=== PATIENT | female | born 1980 | race Caucasian/White ===

== ENCOUNTER 2018-09-25 19:20 | Emergency (ER) | payer SELFPAY ==
[2018-09-25 20:18] LABS: #Basophils 0.1 thou/uL (0.0-0.2); #Eosinphils 0.4 thou/uL (0.0-0.7); #Lymphocytes 4.1 thou/uL (1.20-3.40); #Monocytes 0.9 thou/uL (0.11-0.59); #Neutrophils 10.1 thou/uL (1.40-6.50); %Basophils 0.6 % (0.0-1.0); %Eosinophils 2.4 % (0.0-10.0); %Lymphocytes 26.3 % (21.0-51.0); %Monocytes 5.6 % (0.0-10.0); %Neutrophils 65.1 % (42.0-75.0); Hemoglobin 10.4 g/dL (12.0-16.0); Mean Corpuscular HGB CONC 33.2 g/dL (32.0-36.0); Mean Corpuscular Hemoglobin 30.5 pg (27.0-31.0); Mean Corpuscular Volume 91.9 fL (78.0-98.0); Mean Platelet Volume 7.6 fL (7.4-10.4); Platelet Count 407 thou/uL (130-400); RBC Distribution Width 12.6 % (11.5-14.5); Red Blood Cell (RBC) Count 3.42 mill/uL (4.20-5.40); White Blood Cell (WBC) Count 15.5 thou/uL (4.8-10.8)
--- NOTE | 2018-09-25 20:55 | ULT ---
EXAM: Pelvic ultrasound HISTORY: Heavy vaginal bleeding for 2 days with pelvic cramping and pain COMPARISON: None TECHNIQUE: Multiple grayscale and color Doppler images were obtained in a transabdominal and transvag inal pelvic ultrasound. Spectral analysis of the Doppler waveforms of the ovaries were performed. FINDINGS: UTERUS: There is an irregular intrauterine gestational sac. This does not contain a yolk sac or pole. Heterogeneous material is seen within the endometrium and cervix. No free fluid is seen in the pelvis. RIGHT OVARY: Normal flow without focal mass. LEFT OVARY: Normal flow without focal mass. IMPRESSION: The patient is likely ongoing spontaneous .
[2018-09-25] MEDS ORDERED: Acetaminophen 500 MG TAB ONE (22:37)
== END 2018-09-25 22:56 | disposition home or self-care (01) ==
LOC: ERS 19:20
DX: O20.0 Threatened abortion (principal); O99.330 Smoking (tobacco) complicating pregnancy, unspecified trimester; F17.210 Nicotine dependence, cigarettes, uncomplicated
CPT/HCPCS: 36415; 36416; 76856; 84702; 85025; 86900; 86901; 90384; 96372

== ENCOUNTER 2018-09-25 23:43 | Emergency (ER) | payer SELFPAY ==
[2018-09-26] MEDS ORDERED: Ketorolac Tromethamine 30 MG/ML VIAL ONE (00:09)
[2018-09-26 02:05] LABS: #Basophils 0.1 thou/uL (0.0-0.2); #Eosinphils 0.3 thou/uL (0.0-0.7); #Monocytes 0.8 thou/uL (0.11-0.59); #Neutrophils 10.6 thou/uL (1.40-6.50); %Basophils 0.8 % (0.0-1.0); %Eosinophils 1.8 % (0.0-10.0); %Lymphocytes 33.5 % (21.0-51.0); %Monocytes 4.5 % (0.0-10.0); %Neutrophils 59.4 % (42.0-75.0); Hemoglobin 8.8 g/dL (12.0-16.0); Mean Corpuscular HGB CONC 33.8 g/dL (32.0-36.0); Mean Corpuscular Hemoglobin 30.6 pg (27.0-31.0); Mean Corpuscular Volume 90.6 fL (78.0-98.0); Mean Platelet Volume 8.5 fL (7.4-10.4); Platelet Count 406 thou/uL (130-400); RBC Distribution Width 12.5 % (11.5-14.5); Red Blood Cell (RBC) Count 2.88 mill/uL (4.20-5.40); White Blood Cell (WBC) Count 17.8 thou/uL (4.8-10.8)
== END 2018-09-26 02:42 | disposition home or self-care (01) ==
LOC: ERS 23:43
DX: O20.0 Threatened abortion (principal); O09.521 Supervision of elderly multigravida, first trimester; O99.011 Anemia complicating pregnancy, first trimester; D50.0 Iron deficiency anemia secondary to blood loss (chronic); O99.89 Other specified diseases and conditions complicating pregnancy, childbirth and the puerperium; R55 Syncope and collapse; O99.331 Smoking (tobacco) complicating pregnancy, first trimester
CPT/HCPCS: 85025; 93005; 96361; 96372; 96374; J1885

== ENCOUNTER 2018-10-02 17:11 | Day surgery (SDC) | payer SELFPAY ==
[~2018-10-02 17:11] MED LIST: Dexamethasone 20 MG/5 ML VIAL ONE; Lidocaine 1% PF 5 ML VIAL ONE; Ondansetron PF 4 MG/2 ML Vial ONE; PROPOFOL 200 MG/20 ML VIAL ONE; Succinylcholine Chloride 20 MG/ML 10 ml SYRINGE FS ONE; diphenhydrAMINE 50 MG/ML VIAL ONE
[2018-10-02] MEDS ORDERED: Fentanyl 100 MCG/2 ML VIAL ONE ×2 (18:49→20:39)
[2018-10-02 21:16] LABS: Hemoglobin 8.3 g/dL (12.0-16.0); Mean Corpuscular HGB CONC 32.6 g/dL (32.0-36.0); Mean Corpuscular Hemoglobin 30.4 pg (27.0-31.0); Mean Corpuscular Volume 93.3 fL (78.0-98.0); Platelet Count 427 thou/uL (130-400); RBC Distribution Width 12.4 % (11.5-14.5); Red Blood Cell (RBC) Count 2.74 mill/uL (4.20-5.40)
--- NOTE | 2018-10-02 23:01 | OP ---
DATE OF PROCEDURE: 10/02/2018 PREOPERATIVE DIAGNOSES: 1. Incomplete AB. 2. Acute blood loss anemia with blood transfusion. POSTOPERATIVE DIAGNOSES: 1. Incomplete AB. 2. Acute blood loss anemia with blood transfusion. PROCEDURE PERFORMED: Suction D and C. ANESTHESIA: General. COMPLICATIONS: None. COUNTS: Correct. ESTIMATED BLOOD LOSS: 150 mL. SPECIMENS RETAINED: Products of conception to pathology. DESCRIPTION OF PROCEDURE: Ms. Melissa Foster is a 38-year-old female, who was diagnosed with 12-13 week SAB about 5 days prior to presentation and was discharged home. She subsequently has had persistent bleeding that became quite heavy yesterday and came in today for evaluation. She was noted at an outside facility to have a hemoglobin of 5, hematocrit of 15. She was transfused 2 units of packed red blood cells and sent to [facility] for evaluation, where I was consulted. The patient reports that she has been changing pads about four times an hour and since presentation to the emergency room, it seemed to slow down some. The patient reports extreme fatigue but denies any chest pain, headache, shortness of breath, dizziness or lightheadedness. She reports cramping and bleeding. After evaluation, the patient was diagnosed to the incomplete AB and counseled to a suction D and C for management. Risks and benefits were discussed with her including the risk of bleeding, infection, damage to bowel or bladder, blood vessels, perforation in the bladder, rectum or the uterus. The patient expressed understanding, provided written informed consent and we proceeded with the procedure. The patient was then taken to the OR, placed under general anesthesia, placed in dorsal lithotomy position in [facility] stirrups. She was prepared and draped in normal sterile fashion. Attention was placed vaginally with an operative speculum identifying the cervix. Of note, during prepping and at the beginning of the case, the patient had about 75-100 mL of blood clot removed from the vaginal vault, visible at the os was a large clot with some manipulation was removed and noted to be containing membranes appeared to be amniotic membranes and possible placental fragments. This was safer to be sent to Pathology. Cervix was plenty dilated, so further dilation was not needed. A single-tooth tenaculum was placed in the anterior lip of the cervix. Uterus was sounded to 10 cm. A 10-Yi suction catheter was used with suction up to 45 cm of water. Two passes were made removing any remaining products of conception. A sharp curette was then applied and found to have a good cry in all 4 quadrants and the suction curette was passed one more time. At this point, the bleeding was much lower but continued to persist some with a vigorous bimanual massage and pressure on the uterus, bleeding diminished some. A sponge stick was used to apply pressure on the tenaculum sites as these areas were also bleeding. These areas became hemostatic. Bleeding persisted, was at a very low acceptable level. Procedure at this time was completed. The patient was taken out of lithotomy position and candy-cane stirrups, extubated and taken to recovery in stable condition. Of note, the patient was discharged to home with instructions to follow up with either her primary provider or with [facility] [place] in 2 weeks. She was provided with doxycycline 100 mg to be taken twice a day for 3 days and ibuprofen 800 mg to be taken 3 times a day as needed for pain. Job ID: [id number]
== END 2018-10-02 21:45 | disposition home or self-care (01) ==
LOC: ERS 17:11 → SDC/OP 19:04
PROVIDERS: ATTEND Obstetrics & Gynecology
PROC: 10D17ZZ Extraction of Products of Conception, Retained, Via Natural or Artificial Opening (ICD-10-PCS; principal; 2018-10-02)
DX: O03.4 Incomplete spontaneous abortion without complication (principal); F17.210 Nicotine dependence, cigarettes, uncomplicated; F17.290 Nicotine dependence, other tobacco product, uncomplicated; D62 Acute posthemorrhagic anemia; Z88.0 Allergy status to penicillin
CPT/HCPCS: 36415; 86850; 86870; 86900; 86901; 86922; 88305; 99285; J1100; J1200; J2001; J2405; J2704; J3010; J3490

== ENCOUNTER 2019-05-01 07:28 | Day surgery (SDC) | payer MEDICAID, OTHER, SELFPAY ==
[2019-05-01 08:15] LABS: #Basophils 0.1 thou/uL (0.0-0.2); #Eosinphils 0.3 thou/uL (0.0-0.7); #Lymphocytes 2.7 thou/uL (1.20-3.40); #Monocytes 0.7 thou/uL (0.11-0.59); #Neutrophils 6.5 thou/uL (1.40-6.50); %Basophils 1.1 % (0.0-1.0); %Eosinophils 2.9 % (0.0-10.0); %Lymphocytes 26.6 % (21.0-51.0); %Monocytes 6.9 % (0.0-10.0); %Neutrophils 62.7 % (42.0-75.0); Mean Corpuscular HGB CONC 32.1 g/dL (32.0-36.0); Mean Corpuscular Hemoglobin 28.2 pg (27.0-31.0); Mean Corpuscular Volume 87.8 fL (78.0-98.0); Mean Platelet Volume 8.1 fL (7.4-10.4); Platelet Count 357 thou/uL (130-400); RBC Distribution Width 16.6 % (11.5-14.5); Red Blood Cell (RBC) Count 4.96 mill/uL (4.20-5.40); White Blood Cell (WBC) Count 10.3 thou/uL (4.8-10.8)
[2019-05-01 08:36] LABS: ALT (SGPT) 11 U/L (8-55); AST (SGOT) 15 U/L (5-34); Albumin 3.8 g/dL (3.5-5.0); Alkaline Phosphatase 57 U/L (40-110); Anion Gap 11 mmol/L (10-20); BUN (Urea Nitrogen) 8 mg/dL (7.0-18.7); Bilirubin, Total 0.2 mg/dL (0.2-1.2); Calc. Creatinine Clearance 0 mL/min (70-130); Calcium 8.5 mg/dL (7.8-10.44); Carbon Dioxide 24 mmol/L (22-29); Chloride 105 mmol/L (98-107); Estimated GFR-MDRD Greater than 90; Glucose 85 mg/dL (70-105); Potassium 3.9 mmol/L (3.5-5.1); Protein, Total 6.8 g/dL (6.0-8.3); Sodium 136 mmol/L (136-145)
[2019-05-01 08:40] LABS: Bilirubin Negative (Negative); Blood, Urine Large (Negative); Glucose, Urine (Dipstick) Negative (Negative); Leukocyte Negative (Negative); Nitrite Negative (Negative); Protein, Urine (Dipstick) > or equal to 300 mg/dL (Neg-Trace); Urobilinogen 0.2 mg/dL (Less than 2)
[2019-05-01 08:44] LABS: Clarity Cloudy (Clear)
[2019-05-01 08:45] LABS: Bacteria/HPF 3+ HPF (None Seen); RBC/HPF Greater than 50 HPF (0-3); Squamous Epithelial 0-3 HPF (0-3); WBC/HPF 0-3 HPF (0-3)
--- NOTE | 2019-05-01 09:16 | ULT ---
Transabdominal pelvic ultrasound with grayscale, color-flow and spectral Doppler imaging: HISTORY: Abdominal pain and vaginal bleeding patient COMPARISON: None. FINDINGS: The uterus measures 12.8 x 7.1 x 6.7 cm. No uterine mass or intrauterine gestational sac is identified. There is heterogeneity in the endocervical canal suspicious for blood products. The right ovary measures 2.6 x 2 x 1.7 cm in the left ovary measures 2.6 x 1.9 x 2.4 cm. Flow is demo nstrated to both ovaries. No adnexal mass or free fluid in the cul-de-sac is seen. IMPRESSION: Findings suggestive of retained products of conception in the endocervical canal.
[2019-05-01] MEDS ORDERED: Acetaminophen 500 MG TAB ONE (09:31)
[2019-05-01] MEDS ORDERED: PROPOFOL 200 MG/20 ML VIAL ONE (10:37)
[2019-05-01] MEDS ORDERED: Lidocaine 1% PF 5 ML VIAL ONE (10:37)
[2019-05-01] MEDS ORDERED: Ondansetron PF 4 MG/2 ML Vial ONE (10:37)
[2019-05-01] MEDS ORDERED: Dexamethasone 20 MG/5 ML VIAL ONE (10:37)
[2019-05-01] MEDS ORDERED: traMADol HCl 50 MG TAB ONE (10:39)
[2019-05-01] MEDS ORDERED: Ondansetron ODT 4 MG TAB ONE (10:39)
[2019-05-01] MEDS ORDERED: Fentanyl 100 MCG/2 ML VIAL ONE ×2 (12:59→15:00)
[2019-05-01] MEDS ORDERED: Midazolam HCl 2 mg/2 ml Vial ONE ×2 (13:33→13:35)
[2019-05-01] MEDS ORDERED: Silver Nitrate Application 1 EACH ONE (14:19)
[2019-05-01] MEDS ORDERED: Meperidine HCl/PF 25 MG/ML VIAL ONE (15:21)
[2019-05-01] MEDS ORDERED: HYDROcodone/Acetaminophen 5/325 mg Tablet ONE (17:38)
--- NOTE | 2019-05-02 00:13 | OP ---
DATE OF PROCEDURE: 05/01/2019 PRIMARY OB: Not established at this time. PREOPERATIVE DIAGNOSIS: Incomplete AB. POSTOPERATIVE DIAGNOSIS: Incomplete AB. PROCEDURE PERFORMED: Suction D and C. ANESTHESIA: General. ESTIMATED BLOOD LOSS: 100 mL. COMPLICATIONS: None. COUNTS: Correct. ESTIMATED BLOOD LOSS: 150 mL. FINDINGS: About 100 mL clot present upon initial identification of the cervix. Uterus anteverted on bimanual exam. SPECIMENS: Products of conception. DESCRIPTION OF PROCEDURE: Ms. Melissa Foster is a 39-year-old female, G3, P1, presenting to the emergency room with 1-day history of cramping and bleeding with belief that she is about 16 weeks . Upon presentation to the emergency room, she was noted to have no viable with no pole identified, however, had heterogeneous material present and also suspicion of a failed . Her HCG quant was 2500. On physical exam, the patient was noted to have about 200 mL of blood and the fetus was identified along the contents with no other placental tissue membranes gestational sac present. The fetus was approximately 8 weeks in size. The patient was counseled to her state of incomplete AB, and was offered medical versus surgical management. She desired this surgical management due to previous experience attempting medical management ending in a D and C. She is counseled of the risks and benefits including the risk of bleeding, infection, damage to bowel or bladder, blood vessels, risks to decreased fertility and conversion to laparotomy due to complications. The patient expressed understanding and desired to proceed. She was taken to the operating room and placed under general anesthesia without difficulty. She was placed in dorsal lithotomy position, prepared and draped in normal sterile fashion. Attention was placed vaginally with an operative speculum identifying the cervix, which was then grasped at the anterior lip with a single-tooth tenaculum. Prior to this, approximately 100 mL of clot was removed. Once the cervix was fully visible, a ring forceps was used to grasp to explore the cervical canal itself and what appeared to be placental tissue was teased out from the intrauterine cavity as well as membranous material. Once this was completed, the suction D and C was then utilized with an 8 mm curved curette. The curette was passed 3 or 4 times with significant amount of material coming with each pass. A serrated sharp curette was then used for evaluation of the uterine cavity. There was not a good uterine cry and the suction curette was then passed a couple of more times until minimal return. The sharp curette was then utilized again noting good cry in all quadrants. With more bleeding than I was comfortable with, bimanual pressure was placed on the uterus, which aided in making the uterus hemostatic. The single-tooth tenaculum had been removed prior to that. Inspection of that site demonstrated more bleeding. Silver nitrate was used to make those sites hemostatic. Once this was done and the uterus was noted to continue to have minimal to no bleeding. The procedure was then completed. The speculum was removed and the patient was taken out of lithotomy position and extubated and taken to recovery room in stable condition. Job ID: [id number]
== END 2019-05-01 18:23 | disposition home or self-care (01) ==
LOC: ERS 07:28
PROVIDERS: ATTEND Obstetrics & Gynecology
PROC: 10D17ZZ Extraction of Products of Conception, Retained, Via Natural or Artificial Opening (ICD-10-PCS; principal; 2019-05-01)
DX: O03.4 Incomplete spontaneous abortion without complication (principal); F17.210 Nicotine dependence, cigarettes, uncomplicated; Z88.0 Allergy status to penicillin
CPT/HCPCS: 36415; 76856; 80053; 81003; 81015; 84702; 85025; 86900; 86901; 87086; 88305; 90384; 93976; 96372; J1100; J2001; J2175; J2250; J2405; J2704; J3010; J3490; Q0162